=== PATIENT | female | born 1990 | race Caucasian/White ===

== ENCOUNTER 2024-01-26 16:29 | Emergency (ER) | payer OTHER, SELFPAY ==
[2024-01-26] MEDS ORDERED: MORPHINE 4 MG/ML SYR ONE (17:26)
--- NOTE | 2024-01-26 18:08 | RAD REPORT ---
EXAM DESCRIPTION: RAD - Knee Left 3 View - 01/26/2024 5:49 pm CLINICAL HISTORY: PAIN COMPARISON: No comparisons FINDINGS/IMPRESSION: No acute fracture. No malalignment. Screw near the tibial tubercle may be from a prior ACL repair. Mild patellofemoral compartment spurring.
--- NOTE | 2024-01-26 18:22 | ER ---
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 ll1 Has had 3 surgeries in that knee in the past. Coronavirus screen: Client denies travel out of the [place] in the last 14 days. At this time, the client does not indicate any symptoms associated with coronavirus-19. Ebola Screen: Patient denies travel to an Ebola-affected area in the 21 days before illness onset. Initial Sepsis Screen: Does the patient meet any 2 criteria? No. Patient's initial sepsis screen is negative. Does the patient have a suspected source of infection? No. Patient's initial sepsis screen is negative. Risk Assessment: Do you want to hurt yourself or someone else? Patient reports no desire to harm self or others. Onset of symptoms was January 26, 2024. 16:39 Method Of Arrival: Wheelchair ll1 16:39 Acuity: CORTNEY 3 ll1 Triage Assessment: 16:41 General: Appears uncomfortable, Behavior is calm, cooperative, appropriate for age. ll1 Pain: Complains of pain in L knee Quality of pain is described as aching. Musculoskeletal: Reports pain in L knee. Historical: - Allergies: 16:38 Adhesives; ll1 - Home Meds: 16:38 control [Active]; ll1 - PMHx: 16:38 None; ll1 - PSHx: 16:38 Multiple L knee SX, R ankle sx; section; ll1 - Immunization history:: Adult Immunizations up to date. - Infectious Disease History:: Denies. - Social history:: Smoking status: Patient denies any tobacco usage or history of. Screenin:57 [facility] ED Fall Risk Assessment (Adult) History of falling in the last 3 months, cm10 including since admission No falls in past 3 months (0 pts) Confusion or Disorientation No (0 pts) Intoxicated or Sedated No (0 pts) Impaired Gait Yes (1 pt) Mobility Assist Device Used Yes (1 pt) Altered Elimination No (0 pt) Score/Fall Risk Level 0 - 2 = Low Risk Oriented to surroundings, Maintained a safe environment, Hourly rounding (assess needs \T\ fall precautionary measures) done. Abuse screen: Denies threats or abuse. Denies injuries from another. Nutritional screening: No deficits noted. Tuberculosis screening: No symptoms or risk factors identified. Assessment: 16:58 General: Appears in no apparent distress. uncomfortable, Behavior is calm, cooperative. cm10 Pain: Complains of pain in Left knee. Neuro: No deficits noted. Level of Consciousness is awake, alert, obeys commands, Oriented to person, place, time, situation, Appropriate for age. Respiratory: No deficits noted. Airway is patent Respiratory effort is even, unlabored, Respiratory pattern is regular, symmetrical. Musculoskeletal: Reports pain in Left knee. Vital Signs: 16:39 BP 156 / 96; Pulse 90; Resp 17; Temp 97.9; Pulse Ox 99% ; Weight 97.52 kg; Height 5 ft. ll1 5 in. ; Pain 10/10; 16:39 Body Mass Index 35.78 (97.52 kg, 165.1 cm) ll1 16:39 Pain Scale: Adult ll1 ED Course: 16:33 Patient arrived in ED. im 16:40 Triage completed. ll1 16:41 Arm band placed on Patient placed in an exam room, on a stretcher. ll1 16:44 Shelby Kang, RN is Primary Nurse. cm10 16:58 Patient has correct armband on for positive identification. Bed in low position. Call cm10 light in reach. 17:03 Chris Raymond PA is PHCP. cp 17:03 Trae Boggs MD is Attending Physician. cp 17:51 Knee Left 3 View XRAY In Process Unspecified. EDMS 18:21 Marv Busch MD is Referral Physician. cp 19:06 No provider procedures requiring assistance completed. Patient did not have IV access cm10 during this emergency room visit. Knee immobilizer applied on left knee. 19:07 Provided Education on: Follow-up instructions. cm10 Administered Medications: 17:32 Drug: morphine IM 6 mg IM once Route: IM; Site: left vastus lateralis; cm10 18:25 Follow up: Response: No adverse reaction cm10 Medication: 16:57 VIS not applicable for this client. cm10 Outcome: 18:21 Discharge ordered by . cp 19:06 Discharged to home via wheelchair, with family, cm10 19:06 Condition: good 19:06 Discharge instructions given to patient, Instructed on discharge instructions, follow up and referral plans. Demonstrated understanding of instructions, follow-up care, Prescriptions given X 1, 19:07 Patient left the ED. cm10 Signatures: Dispatcher [employer] EDMS Chris Raymond PA PA cp Lewis, Lynsay RN RN ll1 Rochelle Velez Clarissa, RN RN cm10
--- NOTE | 2024-01-26 18:23 | EDPHYS ---
Physician Documentation [facility] Name: Keena Bartholomew Age: 33 yrs Sex: Female : 1990 Arrival Date: 01/26/2024 Time: 16:29 Bed 11 Private MD: ED Physician Trae Boggs HPI: 01/25 17:10 This 33 yrs old Female presents to ER via Wheelchair with complaints of Knee Pain. cp 17:10 The patient presents with pain, that is acute. The complaints affect the left knee. cp Context: felt "pop' while getting into bed. history of 3 surgeries to left knee to include ACL and meniscus repair. c/o difficulty straightening knee. 17:10 Onset: The symptoms/episode began/occurred 1 hour ship's captain. Associated signs and symptoms: cp Pertinent negatives swelling. Treatment prior to arrival includes: no previous treatment. Historical: - Allergies: 16:38 Adhesives; ll1 - Home Meds: 16:38 control [Active]; ll1 - PMHx: 16:38 None; ll1 - PSHx: 16:38 Multiple L knee SX, R ankle sx; section; ll1 - Immunization history:: Adult Immunizations up to date. - Infectious Disease History:: Denies. - Social history:: Smoking status: Patient denies any tobacco usage or history of. ROS: 17:15 MS/extremity: Positive for decreased range of motion, pain, of the left knee, cp 17:15 Constitutional: Negative for chills, fever, cp 17:15 Neck: Negative for pain with movement, pain at rest, 17:15 Back: Negative for pain at rest, pain with movement, 17:15 Neuro: Negative for numbness, weakness, 17:15 All other systems are negative, Exam: 17:20 Constitutional: The patient appears in no acute distress, alert, awake, well developed, cp well nourished, uncomfortable, 17:20 Head/Face: Normocephalic, atraumatic. cp 17:20 Chest/axilla: Inspection: normal, 17:20 Cardiovascular: Rate: normal, Pulses: Pulses are 2+ in left dorsalis pedis artery. 17:20 Respiratory: the patient does not display signs of respiratory distress, Respirations: normal, no use of accessory muscles, no retractions, labored breathing, is not present, 17:20 Abdomen/GI: Inspection: abdomen appears normal, 17:20 Back: pain, is absent, ROM is normal, 17:20 Musculoskeletal/extremity: Extremities: grossly normal except: noted in the left knee: decreased ROM, pain, medial joint line tenderness, There is no evidence of deformity, erythema, ROM: limited passive range of motion due to pain, in the left knee, Vital Signs: 16:39 BP 156 / 96; Pulse 90; Resp 17; Temp 97.9; Pulse Ox 99% ; Weight 97.52 kg; Height 5 ft. ll1 5 in. ; Pain 10/10; 16:39 Body Mass Index 35.78 (97.52 kg, 165.1 cm) ll1 16:39 Pain Scale: Adult ll1 MDM: 17:04 Patient medically screened. cp 17:30 Differential diagnosis: dislocation, closed fracture, strain, ligament injury, torn cp meniscus. 18:21 Data reviewed: vital signs, nurses notes, radiologic studies, plain films, and as a cp result, I will discharge patient. 18:21 I considered the following discharge prescriptions or medication management in the emergency department Medications were administered in the Emergency Department. See MAR. Independent interpretation of the following test(s) in the Emergency Department X-Ray: My interpretation is images of left knee negative for fracture. Counseling: I had a detailed discussion with the patient and/or guardian regarding the historical points, exam findings, and any diagnostic results supporting the discharge/admit diagnosis, radiology results, the need for outpatient follow up, for definitive care, a orthopedic surgeon, to return to the emergency department if symptoms worsen or persist or if there are any questions or concerns that arise at home. Response to treatment: the patient's symptoms have markedly improved after treatment, and as a result, I will discharge patient. 01/25 16:41 Order name: Knee Left 3 View XRAY rt 01/25 18:02 Order name: Knee Immobilizer; Complete Time: 19:06 cp Administered Medications: 17:32 Drug: morphine IM 6 mg IM once Route: IM; Site: left vastus lateralis; cm10 18:25 Follow up: Response: No adverse reaction cm10 Disposition: 20:00 Co-signature as Attending Physician, Trae Boggs MD I reviewed the patient's care rt provided by the Advanced Practice Provider and agree with the diagnosis and treatment plan. Disposition Summary: 01/26/24 18:21 Discharge Ordered Notes: Location: Home cp Problem: new cp Symptoms: have improved cp Condition: Stable cp Diagnosis - Pain in left knee cp Followup: cp - With: Marv Busch MD - When: 2 - 3 days - Reason: Recheck today's complaints Discharge Instructions: - Discharge Summary Sheet cp - How to Use a Knee Immobilizer cp - Acute Knee Pain, Adult cp Forms: - Medication Reconciliation Form cp - Antibiotic Education cp - Prescription Opioid Use cp - Patient Portal Instructions cp - Leadership Thank You Letter cp Prescriptions: - Diclofenac Sodium 75 mg Oral Tablet Sustained Release - take 1 tablet ORAL route 2 times per day; 30 tablet; Refills: 0, Product cp Selection Permitted Signatures: Dispatcher [employer] EDMS Chris Raymond PA PA cp Kimo Hawkins, RN RN ll1 Trae Boggs MD MD rt Shelby Kang RN RN cm10 Corrections: (The following items were deleted from the chart) 19:06 18:02 Crutches ordered. cp cm10
[2024-01-27 02:43] VITALS: BP 156/96; TEMP 97.9; O2SAT 99
== END 2024-01-26 19:07 | disposition home or self-care (01) ==
LOC: ER 16:29
DX: M25.562 Pain in left knee (principal)
CPT/HCPCS: 96372; 99284